=== PATIENT | male | born 1960 | race Caucasian/White ===

== ENCOUNTER 2016-12-08 16:45 | Inpatient (IN) | payer OTHER ==
[~2016-12-08] VITALS: Ht 180.3 cm; Wt 106.2 kg
--- NOTE | ~2016-12-08 | EKG ---
PATIENT: JULES MONZON UNIT #: [id number] Ventricular Rate: 125 BPM Atrial Rate: 33 BPM QRS Duration: 186 ms Q-T Interval: 400 ms QTC Calculation(Bezet): 577 ms Calculated R [place]: -28 degrees Calculated T [place]: 92 degrees Diagnosis Line: Supraventricular tachycardia Diagnosis Line: Left bundle branch block Diagnosis Line: Abnormal ECG Diagnosis Line: When compared with ECG of 06-JUL-2016 18:24, Diagnosis Line: Supraventricular tachycardia has replaced Sinus Diagnosis Line: rhythm Diagnosis Line: Confirmed by DOMINIC MCCRAY MD ([id number]) on 12/09/2016 Diagnosis Line: 7:55:58 PM INTERPRETING MD: SHAZIA LADD
--- NOTE | ~2016-12-08 | CR72 ---
[facility] A Service of [facility] & [facility] RADIOLOGY TEXT RESULTS PATIENT: JULES MONZON LOCATION: [place] [address] : [birth year] UNIT #: [id number] AGE: [address]: Dilcia Alvarez MD SEX: M ORDER DR: [id number] [facility] [address] [facility]. [place], [place] [address] [id number] I MR#: [id number] Acc #: [id number] NAME: JULES MONZON : 1960 SEX: M STUDY DATE/TIME: 12/12/2016 04:24 UNIT: [facility] ROOM: [facility] STUDY DESCRIPTION: CR Chest Single View Portable Attending Physician: Dilcia Alvarez M.D. Ordering Physician: Dilcia Alvarez M.D. Primary Care Physician: Luisito Ash M.D. MEDICAL IMAGING REPORT This report is preliminary unless electronic signature is present EXAM Portable chest, 12/12 at 04:24 INDICATION Respiratory failure, shortness of air. COPD exacerbation. FINDINGS AP portable chest is compared with 12/09/2016. Cardiomegaly stable. Right IJ line in the SVC. There is still some consolidation behind the heart at the left base and there is a trace amount of left pleural fluid. Granulomatous calcifications are present. No pneumothorax. Dictated by... Kyle St Jr., M.D. THIS IS AN ELECTRONICALLY VERIFIED REPORT Kyle St Jr., M.D. at 12/12/2016 9:24 PM JOHNATHAN/armando TD: 12/12/2016 16:04 JOB #: [id number] MEDICAL IMAGING REPORT Page 1 of 1 COPY
--- NOTE | ~2016-12-08 | CO ---
Unit #: [id number] #: [id number] Patient: JULES CHAVEZ SR [id number] [address] [place], [place] [address] [id number] Rick MR#: [id number] NAME: JULES CHAVEZ SR ROOM: [facility] Age: 55 Sex: M Admission Date: 12/08/2016 : 1960 Attending Physician: Dilcia Alvarez M.D. Primary Care Physician: Luisito Ash M.D. Consultation Date: 12/09/2016 CONSULTATION REPORT REASON FOR CONSULTATION Renal insufficiency. Thank you very much for asking me to see this patient in consultation. HISTORY OF PRESENT ILLNESS Mr. Jules Chavez is a 55-year-old male with history of renal insufficiency in the past, I saw the patient in 09/2015, where he had acute renal failure. His creatinine did not go all the way down to the normal on discharge. I believe it was 1.5 at that time. He does have a history of cardiomyopathy with decreased EF around 10% to 15% with atrial fibrillation. He presents here again with increased shortness of breath x3 days and cough. The patient subsequently was also has had episodes of hypotension here and has been started on Levophed drip. The patient also started on IV diuretics for potential congestive heart failure. The patient is alert. He denies any chest pain. No nausea or vomiting. He denies any urinary symptoms. PAST MEDICAL HISTORY History of diabetes mellitus; history of cardiomyopathy with decreased EF around 10% to 15%; history of atrial fib; history of COPD; history of gastroesophageal reflux disease; history of hypertension; history of TIAs; history of hyperlipidemia; history of acute renal failure; again history of duodenal ulcers in the past; history of anemia; history of pulmonary embolus in 09/2015; he is status post AICD placement; he has a history of cocaine abuse in the past, although he states he has not done any in a while; he also has a chronic history of smoking. MEDICATIONS His medicines currently include Levophed, he still on little hydralazine per Cardiology as well as Coreg, he is on Rocephin, Lasix 20 mg q.12, Solu-Medrol, ProAmatine, Lovenox, Zocor, Seroquel, Neurontin, Aldactone, and Protonix. SOCIAL HISTORY Positive smoker since age 4. Positive cocaine in the past, denies recently. No alcohol use. Retired, on disability. ALLERGIES Include codeine and Aleve. REVIEW OF SYSTEMS As mentioned in the HPI. Denies any fevers, chills, visual problems, sinus problems. No hemoptysis. No severe abdominal pain. No severe Unit #: [id number] #: [id number] Patient: JULES CHAVEZ SR diarrhea. No urinary symptoms. No skin rashes. He denies any nonsteroidal use. FAMILY HISTORY Noncontributory. PHYSICAL EXAMINATION GENERAL: He is alert. VITAL SIGNS: T-max 99.2, pulse 81 to 107, blood pressure 76 to 132 over 50s to 80s, last check was 98/72, 675 in and out recorded as 100 only. HEENT: He is normocephalic and atraumatic. Pupils are equal, round, and reactive to light. Extraocular muscles are intact. Hearing appears to be normal. Mouth is clear. No erythema. No exudate. NECK: Supple. No JVD. CARDIAC: He has an irregular rhythm without a rub. No S3 or S4. LUNGS: He has some bilateral rhonchi. ABDOMEN: Bowel sounds positive. Nontender. Soft. EXTREMITIES: He has no trace lower extremity swelling. NEURO: He is alert. : Deferred. Diamond catheter is in place. SKIN: No rashes. DIAGNOSTIC STUDIES LABORATORY RESULTS: Showed an ABG of pH 7.402, pCO2 of 35, PO2 of 114 on 3 L. Troponin 0.03. BNP 3461. Lactic acid was 3.3. TSH 2.84. In 06/2016, he had a creatinine ranging between 1.1 to 1.4. Hemoglobin is 15.1, platelets 99,000, white count 6900. Sodium is 131, potassium 5.4 up from 4.7, chloride is 101, bicarb is 17, BUN of 50, creatinine 2.4 up from 1.7, glucose 265. UA shows specific gravity of 1.02, 1+ protein, 0 to 2 rbc's, 0 to 2 wbc's. IMAGING STUDIES: Chest x-ray, cardiomegaly with some mild vascular congestion. ASSESSMENT AND PLAN 1. Acute on probable chronic kidney disease. Certainly acute renal failure could be related to some acute tubular necrosis from hypotension, possible being ruled out for sepsis as well as possible decrease perfusion from poor cardiac output versus other. I agree with blood pressure up and some diuresis as well. We will check a BMP later today and in the morning. We will check a portable renal ultrasound to rule out obstruction and we will follow. 2. Hyperkalemia. The patient's potassium increasing secondary to renal insufficiency, hyperglycemia, and metabolic acidosis. We will go ahead and discontinue his Aldactone. We will give him several doses of IV bicarb and check potassium later today. 3. Diabetes mellitus with increased glucose. 4. History of cardiomyopathy with decreased ejection fraction. 5. Chronic obstructive pulmonary disease. 6. Shortness of breath. Again, a combination of possible chronic obstructive pulmonary disease exacerbation versus congestive heart failure versus pneumonia versus other. CT scan of the chest without IV contrast has been ordered. 7. Acidosis. The patient with a decreased bicarb 17 and the patient appears to have a combination of metabolic acidosis as well as a respiratory alkalosis. Unit #: [id number] #: [id number] Patient: JULES CHAVEZ SR Dictated by..Sandra Guillermo/lennie TD: 12/10/2016 01:24 JOB #: [id number] CONSULTATION REPORT Page 1 of 1 X Jess Monterroso MD CONSULTATION REPORT
--- NOTE | ~2016-12-08 | OR ---
Unit #: [id number] #: [id number] Patient: JULES MONZON [id number] [address] [address] [id number] I MR#: [id number] NAME: JULES MONZON SR ROOM: [facility] Date of Procedure: 12/09/2016 Admission Date: 12/08/2016 Surgeon: Noemí Marshall M.D. : 1960 Attending Physician: Dilcia Alvarez M.D. Primary Care Physician: Luisito Ash M.D. PROCEDURE OPERATIVE NOTE PROCEDURE PERFORMED Right intrajugular venous catheter placement with ultrasound guidance. INDICATION FOR PROCEDURE Septic/cardiogenic shock. COMPLICATIONS None. DESCRIPTION OF PROCEDURE An informed consent was obtained from the patient after explaining the benefit and risk of this procedure. The patient was positioned in a proper way. Then with ultrasound guidance, a needle was inserted in the right IJ until blood flow was obtained. Then a guidewire was inserted and then the needle was removed. Then a catheter was inserted over the guidewire and the guidewire was removed. The catheter was sutured and flushed appropriately. Then Biopatch and a clean dressing were applied. The whole procedure was done in a sterile fashion using chlorhexidine and sterile body drape. Chest x-ray is pending at the time of dictation. Dictated by... Noemí Marshall M.D. EA/arlyn TD: 12/10/2016 08:58 JOB #: [id number] Unit #: [id number] #: [id number] Patient: JULES MONZON SR PROCEDURE OPERATIVE NOTE Page 1 of 1 X NOEMÍ MORAN MD X PROCEDURE OPERATIVE NOTE
--- NOTE | ~2016-12-08 | CT57 ---
[facility] A Service of [facility] & [facility] RADIOLOGY TEXT RESULTS PATIENT: JLUES MONZON SR LOCATION: [address] : [birth year] UNIT #: [id number] AGE: [address]: Dilcia Alvarez MD SEX: M ORDER DR: [id number] [facility] [address] [facility]. [place], [place] [address] [id number] I MR#: [id number] Acc #: [id number] NAME: JULES MONZON SR : 1960 SEX: M STUDY DATE/TIME: 12/09/2016 19:55 UNIT: [facility] ROOM: [facility] STUDY DESCRIPTION: CT Chest Wo Cont Attending Physician: Dilcia Alvarez M.D. Ordering Physician: Lexa Marshall M.D. Primary Care Physician: Luisito Ash M.D. MEDICAL IMAGING REPORT This report is preliminary unless electronic signature is present EXAM CT chest without contrast HISTORY Left posterior rib pain with coughing. Shortness of air for [address] exam was performed with one or more of the following radiation dose reduction techniques: automatic control, adjustment of mA and/or kV according to patient size, and iterative reconstruction. FINDINGS CT chest without contrast demonstrates focal patchy rounded infiltrate in the posterolateral left lower lobe extending to the pleural surface. This is new compared to CT 06/28/2016. This is nonspecific. Considerations include pneumonia. In this location, evolving pulmonary infarct is also a consideration. This measures close to 4 cm. Mild multifocal linear atelectasis in the medial and posterior left lower lobe, and in the posterior right lower lobe, into the right middle lobe. 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 Mild mediastinal adenopathy including pretracheal, right paratracheal, and subcarinal nodes, measuring up to 1.7 cm, similar to the prior CT. Mild multichamber cardiac enlargement. 1.5 cm gallstone. IMPRESSION 1. Focal rounded patchy infiltrate in the posterolateral left lower lobe extending to the pleural surface. Considerations include pneumonia or evolving pulmonary infarct. This is a new finding compared to chest CT 06/28/2016. Correlation with the patient's history and symptoms is recommended. No additional focal infiltrates. 2. Stable mild mediastinal adenopathy. 3. 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 4. 1.6 cm calcified gallstone. [facility]. [facility] A Service of [facility] & [facility] RADIOLOGY TEXT RESULTS PATIENT: JULES MONZON SR LOCATION: [place] [address] : [birth year] UNIT #: [id number] AGE: [address]: Dilcia Alvarez MD SEX: M ORDER DR: Dictated by... Conrado Bautista M.D. THIS IS AN ELECTRONICALLY VERIFIED REPORT Conrado Bautista M.D. at 12/10/2016 11:44 PM MARILUZ/otilia TD: 12/10/2016 04:12 JOB #: [id number] MEDICAL IMAGING REPORT Page 1 of 1 COPY
--- NOTE | ~2016-12-08 | CR72 ---
[facility] A Service of [facility] & [facility] RADIOLOGY TEXT RESULTS PATIENT: JULES MONZON SR LOCATION: [address] : [birth year] UNIT #: [id number] AGE: [address]: Dilcia Alvarez MD SEX: M ORDER DR: [id number] [facility] [address] [facility]. [place], [place] [address] [id number] I MR#: [id number] Acc #: [id number] NAME: JULES MONZON SR : 1960 SEX: M STUDY DATE/TIME: 12/08/2016 17:49 UNIT: [facility] ROOM: [facility] STUDY DESCRIPTION: CR Chest Single View Portable Attending Physician: Dilcia Alvarez M.D. Ordering Physician: Nona Doty M.D. Primary Care Physician: Luisito Ash M.D. MEDICAL IMAGING REPORT This report is preliminary unless electronic signature is present EXAM Portable chest 12/08/2016 HISTORY 55-year-old male with shortness of breath and cough for 3 days. COMPARISON Chest 06/27/2016 FINDINGS Frontal chest demonstrates cardiomegaly. There is mild central vascular prominence and bilateral interstitial opacities. Early congestive failure not excluded in the appropriate clinical setting. Small left pleural effusion not excluded. No pneumothorax. Left-sided AICD complex. IMPRESSION Cardiomegaly with central vascular congestion and mild bilateral interstitial opacities. Early congestive failure not excluded in the appropriate clinical setting. Trace left pleural effusion is also not excluded. Dictated by... Jm Meneses M.D. THIS IS AN ELECTRONICALLY VERIFIED REPORT Jm Meneses M.D. at 12/09/2016 3:57 PM LYNNE/otilia TD: 12/09/2016 04:14 JOB #: [id number] MEDICAL IMAGING REPORT Page 1 of 1 COPY
--- NOTE | ~2016-12-08 | CR72 ---
[facility] A Service of [facility] & [facility] RADIOLOGY TEXT RESULTS PATIENT: JULES MONZON SR LOCATION: [address]06[address] : [birth year] UNIT #: [id number] AGE: [address]: Dilcia Alvarez MD SEX: M ORDER DR: [id number] [place] [id number] [place], [place] [address] [id number] I MR#: [id number] Acc #: [id number] NAME: JULES MONZON SR : 1960 SEX: M STUDY DATE/TIME: 12/09/2016 9:53 UNIT: [facility] ROOM: [facility] STUDY DESCRIPTION: CR Chest Single View Portable Attending Physician: Dilcia Alvarez M.D. Ordering Physician: Lexa Marshall M.D. Primary Care Physician: Luisito Ash M.D. MEDICAL IMAGING REPORT This report is preliminary unless electronic signature is present EXAM Portable chest. HISTORY Central line placement. Patient with cough, line placement today. COMPARISON 12/08/2016 FINDINGS Portable view of the chest demonstrates interval placement of a right neck approach central line distal tip mid SVC. No change in cardiopulmonary status. Continued cardiomegaly and mild diffuse pulmonary vascular congestion. No dense consolidation or sizeable effusions. No pneumothorax. Dual-lead pacemaker noted. Dictated by... Courtney Davalos M.D. THIS IS AN ELECTRONICALLY VERIFIED REPORT Courtney Davalos M.D. at 12/09/2016 5:33 PM Paulina TD: 12/09/2016 17:11 JOB #: [id number] MEDICAL IMAGING REPORT Page 1 of 1 COPY
--- NOTE | ~2016-12-08 | US77 ---
[facility] A Service of [facility] & [facility] RADIOLOGY TEXT RESULTS PATIENT: JULES MONZON LOCATION: [place] [address] : [birth year] UNIT #: [id number] AGE: [address]: Dilcia Alvarez MD SEX: M ORDER DR: [id number] [facility] [address] [facility]. [place], [place] [address] [id number] I MR#: [id number] Acc #: [id number] NAME: JULES MONZON : 1960 SEX: M STUDY DATE/TIME: 12/09/2016 14:43 UNIT: [facility] ROOM: [facility] STUDY DESCRIPTION: US Kidney Bilateral Complete Attending Physician: Dilcia Alvarez M.D. Ordering Physician: Kayta Monterroso M.D. Primary Care Physician: Luisito Ash M.D. MEDICAL IMAGING REPORT This report is preliminary unless electronic signature is present EXAM Bilateral renal sonogram HISTORY Acute renal failure, onset within the last 24 hours. COMPARISON Renal sonogram 09/25/2015 FINDINGS Real-time examination demonstrates the kidneys to be of normal size shape and echogenicity. The right kidney measures 11.5 cm in length. The left kidney measures 9.5 cm in length. There is a small cyst off the medial margin of the left kidney measuring 1.3 cm. Central echo complex appears normal. No hydronephrosis. Bladder is only minimally distended but unremarkable. Perinephric soft tissues unremarkable. IMPRESSION 1. No mass or hydronephrosis. 2. Small left renal cortical cyst. Dictated by... Courtney Davalos M.D. THIS IS AN ELECTRONICALLY VERIFIED REPORT Courtney Davalos M.D. at 12/11/2016 5:12 PM MARTY/otilia TD: 12/09/2016 23:51 JOB #: [id number] MEDICAL IMAGING REPORT Page 1 of 1 COPY
--- NOTE | ~2016-12-08 | CO ---
Unit #: [id number] #: [id number] Patient: JULES MONZON SR [id number] [address] [address] [id number] I MR#: [id number] NAME: JULES MONZON SR ROOM: [facility] Age: 55 Sex: M Admission Date: 12/08/2016 : 1960 Attending Physician: Dilcia Alvarez M.D. Primary Care Physician: Luisito Ash M.D. Consultation Date: 12/11/2016 CONSULTATION REPORT TYPE OF CONSULTATION Endocrine REASON FOR CONSULTATION Uncontrolled diabetes mellitus. HISTORY OF PRESENT ILLNESS A 55-year-old gentleman, who has complicated past medical history of cardiomyopathy, history of possible AICD, COPD, history of pulmonary embolism, anticoagulation therapy, hypertension, depression, dyslipidemia, bipolar disorder, type 2 diabetes mellitus, who has been admitted with increasing shortness of air, dyspnea, hypotension, admitted with sepsis. He also was found to be in acute renal failure. He has been started on IV Solu-Medrol. Blood sugar has been above 400 mg/dL. I have been asked to see the patient for further management. The patient is currently in ICU. PAST MEDICAL HISTORY Nonischemic cardiomyopathy, history of possible AICD, hypertension, hyperlipidemia, type 2 diabetes mellitus, COPD, history of PE, mediastinal mass, and CKD. PAST SURGICAL HISTORY AICD, tonsillectomy, vasectomy, appendectomy, and cardiac cath. MEDICATIONS Current and home medication list is reviewed. The patient is currently on Solu-Medrol 40 mg daily. He is on Rocephin, Zocor and Seroquel. ALLERGIES he had allergies To codeine, Tylenol, and naproxen. SOCIAL HISTORY Active smoker. FAMILY HISTORY Noncontributory. REVIEW OF SYSTEM A 12-point review of systems is unremarkable at this time except shortness of air. PHYSICAL EXAMINATION GENERAL: He looks comfortable, in no acute distress. Unit #: [id number] #: [id number] Patient: JULES MONZON SR VITAL SIGNS: He is on pressors at this point, with blood pressure 133/63, on dobutamine; respiration 20; temperature 97.5, and pulse 80. HEENT: EOMI. Pupils equally reactive to light. NECK: Supple. No thyromegaly noted. CHEST: good air entry. CVS: regular rhythm. ABDOMEN: Benign, nontender, and nondistended. EXTREMITIES: No edema. Ulcers are noted. NEUROLOGIC: Nonfocal. SKIN: No rashes. LABORATORY DATA Glucose 476, creatinine 2.2, sodium 134, potassium is 3, chloride 94, CO2 is 29, calcium 7.4, magnesium 1.5, hemoglobin A1c 7.8, lactic acid is 3.3. ASSESSMENT 1. Type 2 diabetes mellitus, uncontrolled and complicated with the sepsis in the IV steroids. 2. Acute kidney injury. 3. Automated implantable cardioverter defibrillator. PLAN Start the patient on insulin drip. Accu-Cheks every hourly. Keep patient n.p.o. We will start NPH insulin in the morning before each Solu-Medrol dose. Monitor electrolytes. Replace mag and phos as per protocol. We will continue to follow the patient for further management as an outpatient. Dictated by... Sandra García/lennie TD: 12/12/2016 06:15 JOB #: [id number] CONSULTATION REPORT Page 1 of 1 X Rochelle Bustos MD X CONSULTATION REPORT
--- NOTE | ~2016-12-08 | DS ---
Unit #: [id number] #: [id number] Patient: JULES CHAVEZ SR [id number] [address] [address] [id number] I MR#: [id number] NAME: JULES CHAVEZ SR ROOM: 309 Age: 55 Sex: M Admission Date: 12/08/2016 : 1960 Discharge Date: 12/14/2016 Attending Physician: Dilcia Alvarez M.D. Primary Care Physician: Luisito Ash M.D. DISCHARGE SUMMARY FINAL DIAGNOSES 1. Acute hypoxic respiratory failure. 2. Left lower lobe pneumonia. 3. Congestive heart failure. 4. Acute on chronic kidney disease. 5. Atrial fibrillation. 6. Ejection fraction of 40%. 7. Normal coronaries in 2009. 8. Automatic implantable cardioverter-defibrillator in place. 9. Chronic obstructive pulmonary disease. 10. History of pulmonary embolism in September 2015. 11. Diabetes mellitus. 12. Drug abuse. 13. Nicotine abuse. DISCHARGE MEDICATIONS 1. Symbicort 160/4.5 mcg 2 inhalations b.i.d. 2. Amiodarone 200 mg daily. 3. Tylenol 650 q.4 p.r.n. 4. Xarelto 15 mg daily. 5. Neurontin 200 mg t.i.d. p.r.n. 6. Desyrel 50 mg q.h.s. 7. Seroquel 300 mg at bedtime. 8. Bisacodyl 5 mg daily p.r.n. 9. MiraLAX 17 grams p.o. b.i.d. p.r.n. 10. Furosemide 40 mg b.i.d. 11. Zocor 10 mg at bedtime. 12. Midodrine 10 mg t.i.d. 13. Baclofen 10 mg t.i.d. p.r.n. 14. Glucotrol 5 mg daily. 15. Nitroglycerin on a p.r.n. basis. 16. Vitamin D3 - 1,000 units daily. 17. DuoNeb q.i.d. 18. Omnicef 300 mg p.o. b.i.d. until 12/22. CONSULTATIONS DURING HOSPITALIZATION 1. Dr. Marshall and Dr. Reeves from pulmonary service. 2. Dr. Bustos from endocrinology service. 3. Dr. Skelton from cardiology service. 4. Dr. Monterroso from renal service. DIAGNOSTIC STUDIES LAB WORKUP ON DISCHARGE: Glucose 232, magnesium 2.1. CMP - Sodium 136, potassium 4.2, chloride 94, BUN 53, creatinine 1.1, AST 101, ALT 558, Unit #: [id number] #: [id number] Patient: JULES CHAVEZ SR albumin 3.2. CBC shows WBC 10.9, hemoglobin 13.9, hematocrit 43.1 and platelet count of 92. HOSPITAL COURSE Mr. Jules Chavez is a 55-year-old male who was admitted to the hospital by my colleague, Dr. Santos, on 12/08/2016 with atrial fibrillation, ischemic cardiomyopathy, left bundle branch block, elevated troponin, acute exacerbation of COPD, pneumonia and acute kidney injury. The patient does have a history of chronic kidney disease. The patient was admitted to telemetry unit. Cardiology was consulted. The patient was started on Lovenox. Coreg and Lasix were continued. Levophed for hemodynamic support was started, and midodrine was started. The patient did have hypotension on admission. Acute exacerbation of COPD. Was treated with IV steroid and bronchodilator. Dr. Marshall was consulted. The patient did have acute hypoxic respiratory failure, which has improved. The patient's oxygen is stable at this time. The patient needs to continue bronchodilators at home. The patient was treated with IV antibiotics for pneumonia. Acute on chronic kidney disease. The patient was seen by Dr. Monterroso. The patient's renal functions are stable. History of PE. The patient is very noncompliant with home Xarelto. The patient has been advised to continue the Xarelto at home. Diabetes. Dr. Bustos was consulted. The patient's medications are adjusted. EXAMINATION ON DISCHARGE VITAL SIGNS: Blood pressure 112/79, temperature 97.8, pulse 103, respiratory rate 18. PULMONARY: Some rhonchi present. CVS: S1, S2 positive. Regular rhythm. ABDOMEN: Soft. EXTREMITIES: Edema is present. DISCHARGE INSTRUCTIONS 1. The patient is being discharged home in stable condition. 2. Follow up with primary care provider in one week. 3. BMP to be repeated in 1 week. 4. Follow up with Dr. Skelton on 01/27/17 at 1:15 p.m. 5. No NSAIDs over the counter. 6. No JULITO inhibitors. Dictated by... Sandra Dillon TD: 12/16/2016 10:49 JOB #: [id number] Unit #: [id number] #: [id number] Patient: JULES CHAVEZ SR DISCHARGE SUMMARY Page 1 of 1 X Dilcia Alvarez MD X DISCHARGE SUMMARY
--- NOTE | ~2016-12-08 | CO ---
Unit #: [id number] #: [id number] Patient: JULES CHAVEZ [id number] [address] [place], [place] [address] [id number] MR#: [id number] NAME: JULES CHAVEZ SR ROOM: [facility] Age: 55 Sex: M Admission Date: 12/08/2016 : 1960 Attending Physician: Dilcia Alvarez M.D. Primary Care Physician: Luisito Ash M.D. Consultation Date: 12/09/2016 CONSULTATION REPORT REASON FOR CONSULTATION 1. Atrial flutter with left bundle-branch block with rapid ventricular response. 2. Acute on chronic systolic congestive heart failure. HISTORY OF PRESENT ILLNESS This is a 55-year-old white male, who is well known to Dr. Skelton, who has nonischemic cardiomyopathy, and on his last echo, his EF was 10% to 15%. He has a defibrillator. He is a diabetic, history of paroxysmal atrial fibrillation, history of PE last year, TIA in the past, COPD with continued nicotine abuse, hyperlipidemia, chronic kidney disease, who came to the emergency room with worsening shortness of breath and heart racing. He said these symptoms were worsening over the last 4 days. He was having some proximal nocturnal dyspnea and orthopnea. He did notice his lower extremities were a little swollen, but he said he has been adhering to his fluid restriction. The patient said he would lie down and could feel his heart racing and then, he would a kind of try to slow his breathing or just relax, then he would slow down occasionally. He said that has been off and on over the past 3 to 4 days. He just said he broke his ribs in the past and he was having some pain on his right lower ribcage area. He thought maybe he hurt his ribs again. He denies any chest pain; pain in his neck, bilateral jaws, shoulders, arms, or elbow. He denies any dizziness, presyncope or syncope. He would get a little diaphoretic. He denied any fever or chills. He says his cough is nonproductive. In the emergency room, the patient's blood pressure was 105/78, his heart rate was 81, respirations 16, temperature was 97.6 and later on his EKG showed atrial flutter, 2:1 conduction with a left bundle-branch block, ventricular rate was 125 beats per minute. The patient's defibrillator did not fire during any of these episodes. The patient was given 150 mg of IV amiodarone bolus and started on a drip per protocol. Also, his chest x-ray showed vascular congestion and bilateral interstitial opacities. His BNP was over 3000. His lactic acid was 2.4 and later 4.4. WBCs are 10.9. The patient was started on IV diuretics for acute on chronic systolic heart failure and treatment for acute exacerbation of bronchitis on COPD. Cardiology consult to assist with evaluation and management. According to the patient, he last seen Dr. Skelton in 10/2016 and he was supposed to fill a prescription for Xarelto and amiodarone and he has not yet received those prescriptions due to the pharmacy saying there was some type of problem. PAST MEDICAL HISTORY Unit #: [id number] #: [id number] Patient: JULES CHAVEZ SR 1. Nonischemic cardiomyopathy. 2. LVEF of 10% to 15% on echo in 09/2015 with [id number] mitral regurgitation, mild tricuspid regurgitation. 3. In 06/2015, cardiac cath shows normal coronaries. 4. Automatic internal cardioverter-defibrillator, [employer], it is dual chamber. 5. Chronic systolic congestive heart failure. 6. Diabetes mellitus, type 2. 7. Hypertension. 8. Hyperlipidemia. 9. Paroxysmal atrial fibrillation. 10. History of TIA in the past. 11. COPD. 12. Chronic kidney disease. 13. History of PE, 09/2015. 14. 09/2015, EGD showed a duodenal ulcer. Colonoscopy; polyps and diverticulosis. 15. Nicotine abuse. PAST SURGICAL HISTORY 1. AICD implantation in 12/2015. 2. Tonsillectomy. 3. Vasectomy. 4. Repair of left index finger. 5. Appendectomy. 6. Right shoulder surgery. 7. EGD and colonoscopy, 09/2015. HOME MEDICATIONS Aldactone 12.5 mg every 48 hours, aspirin 81 mg p.o. daily, baclofen 10 mg p.o. t.i.d. p.r.n., carvedilol 3.125 mg p.o. b.i.d., Dulcolax 5 mg p.o. daily, DuoNeb every 4 hours p.r.n., gabapentin 200 mg p.o. t.i.d. p.r.n., Glipizide 10 mg p.o. b.i.d., lisinopril 2.5 mg p.o. b.i.d., Nitrostat 0.4 mg sublingual p.r.n., pantoprazole 40 mg p.o. b.i.d., Seroquel XR 300 mg p.o. q.h.s., Desyrel 50 mg p.o. at bedtime, Tylenol 650 mg every 4 hours p.r.n., Zocor 10 mg p.o. h.s., Lasix 20 mg p.o. daily, vitamin D3 with iron one tablet daily, prednisone 40 mg p.o. daily, Symbicort 2 puffs inhalation b.i.d. It is noted the patient had new prescriptions when he saw Dr. Skelton in the office on 10/28/2016 for amiodarone 200 mg 1 tablet daily and Xarelto 20 mg 1 tablet daily, and these are not listed on the patient's home medications. ALLERGIES Naproxen from Aleve, salicylates, pyrazoles, and codeine. SOCIAL HISTORY The patient lives with his mother. He smokes anywhere from 5 to 7 cigarettes a day. He has been smoking most of his adult life. He quit drinking over 10 years ago. He smokes occasional marijuana. FAMILY HISTORY Both his parents has diabetes mellitus. REVIEW OF SYSTEMS See details in HPI. PHYSICAL EXAMINATION Unit #: [id number] #: [id number] Patient: JULES CHAVEZ GENERAL: Mr. Chavez is a 55-year-old white male. He is a little dyspneic with conversation. VITAL SIGNS: Blood pressure currently is 96/62, heart rate is 88, respirations 20, temperature 97.8, O2 saturations 98% on 3 L. NECK: Trachea midline. No thyromegaly or lymphadenopathy. Normal carotid upstrokes. Mild jugular venous distention. HEART: S1, S2. Regular rate and rhythm. Systolic murmur, left sternal border. LUNGS: Very diminished. Some rales in bases with some scattered rhonchi and faint wheeze in upper airways. ABDOMEN: Distended. Positive hepatosplenomegaly. EXTREMITIES: Pedal pulses are palpable. 1+ pedal edema. DIAGNOSTIC DATA LABORATORY RESULTS: ABGs; pH is 7.402, pCO2 of 75.2, pO2 of 114.0, O2 sat is 97 that is on 3 L. Glucose is 256. BUN 40, creatinine 1.7, eGFR is 44.1. Sodium 134, potassium 4.7, chloride 104, CO2 of 21, calcium is 9.0, magnesium is 1.9, total protein 7.3, bilirubin total is 1.5, AST 22, ALT is 43, alkaline phosphatase is 72, BNP is 3461. Alcohol level is less than 5. INR is 1.2. WBC is 6.9, hemoglobin 15.1, hematocrit 47.4, platelets are 99. Initial cardiac enzymes; CK-MB is 1.4, troponin is 0.21, CK-MB is 2.0, troponin 0.27, later troponin is 0.38, 0.33. Blood cultures are pending. IMAGING STUDIES: Chest x-ray shows cardiomegaly with central vascular congestion and mild bilateral interstitial opacities. CARDIOVASCULAR STUDIES: EKG shows atrial flutter with 2:1 conduction and left bundle-branch block. IMPRESSION 1. Atrial flutter with rapid ventricular response with a left bundle-branch block, history of paroxysmal atrial fibrillation. 2. Nonischemic cardiomyopathy, left ventricular ejection fraction of 10% to 15% with [id number] mitral regurgitation, mild tricuspid regurgitation. 3. Normal coronaries per cardiac cath 06/2015. 4. Hypotension with a history of hypertension. 5. Mildly elevated troponin likely secondary to his acute on chronic systolic heart failure. 6. Acute on chronic kidney disease. 7. Diabetes mellitus, type 2. 8. History of transient ischemic attack in the past. 9. Chronic obstructive pulmonary disease, continues nicotine abuse. PLAN 1. Cardiology consult to assist with evaluation and management. 2. Gently diurese with IV Lasix. Strict intake and output and daily weights. Continue to monitor labs, especially BUN, creatinine, and electrolytes, and supplement when needed. 3. The patient currently appears to be 2:1 atrial flutter. His ventricular rate is now improved to 94 beats per minute. He does have a left bundle-branch block. As far as anticoagulation, the patient will be on Lovenox therapeutic dosing. 4. We will have the career guidance counselor to look into the coverage of Xarelto. According to the patient, he took the prescription of Xarelto when he last seen Dr. Skelton this past October and there were some problems at the pharmacy. He has not been taking Xarelto and it appears that he has not Unit #: [id number] #: [id number] Patient: JULES CHAVEZ SR been taking the amiodarone either. We will have the nurse check the pharmacy to see if he has been filling that prescription for amiodarone. Continue the patient on amiodarone drip at this time. He was started back on carvedilol 3.125 mg p.o. b.i.d. along with amiodarone 200 mg p.o. b.i.d. and after the present bag, we will the IV amiodarone. 5. We will add a low-dose nitrate and also low-dose hydralazine for afterload effect. 6. Treatment for his acute bronchitis. 7. The patient's troponin is mildly elevated, most likely secondary to his acute on chronic systolic heart failure and his atrial flutter with rapid ventricular response. He does have normal coronaries that was found last year on his heart catheterization. 8. On exam, there are no signs or symptoms of unstable angina. 9. We will follow this patient closely. Encourage the patient to completely quit smoking. Smoking cessation information was provided to the patient. 10. Further recommendations pending per Dr. Skelton. Thank you very much for allowing us to assist in care. Dictated by... Ghazala Cornell A.P.R.N. for Melvin Skelton M.D. YI/lennie TD: 12/10/2016 00:33 JOB #: [id number] CONSULTATION REPORT Page 1 of 1 X Ghazala Cornell APRN X CONSULTATION REPORT
--- NOTE | ~2016-12-08 | HP ---
Unit #: [id number] #: [id number] Patient: JULES CHAVEZ SR [id number] [address] [address] [id number] MR#: [id number] NAME: JULES CHAVEZ, SR ROOM: [facility] Age: 55 Sex: M Admission Date: 12/08/2016 : 1960 Attending Physician: Dilcia Alvarez M.D. Primary Care Physician: Luisito Ash M.D. HISTORY AND PHYSICAL ADMISSION DIAGNOSES 1. Atrial fibrillation. 2. Ischemic cardiomyopathy. 3. Left bundle branch block. 4. Elevated troponins. 5. Acute exacerbation of chronic obstructive pulmonary disease. 6. Questionable pneumonia. 7. Acute kidney injury, on chronic kidney disease. 8. History of PE with noncompliance with home chronic anticoagulation. 9. History of bipolar disorder. 10. Uncontrolled diabetes. 11. Dyslipidemia. 12. Depression. 13. History of hypertension, now hypotensive. HISTORY OF PRESENT ILLNESS Mr. Chavez is a 55-year-old gentleman with the extensive past medical history including cardiomyopathy, status post AICD, COPD, pulmonary embolus, for which he was noncompliant with his home medicine, Xarelto, history of hypertension, depression, dyslipidemia, bipolar disorder. He comes in with complaints of shortness of air and dyspnea. Denies any fever or chills, denies any palpitations, denies any chest pain, denies any headache, dizziness, syncope or presyncope, denies any nausea, vomiting, diarrhea or abdominal pain. He is a very poor historian but he denied anything else other than shortness of air, dyspnea. He was found hypotensive with acute exacerbation of COPD and cardiomyopathy with A-flutter, was admitted to ICU. So, twelve point review of systems on this patient is basically negative except as above. PAST MEDICAL HISTORY Significant for, again: 1. Nonischemic cardiomyopathy. 2. Hypertension. 3. Dyslipidemia. 4. Diabetes. 5. COPD. 6. History of PE. 7. History of mediastinal mass. 8. History of CKD. PAST SURGICAL HISTORY Significant for: 1. AICD placement. 2. Tonsillectomy. Unit #: [id number] #: [id number] Patient: JULES CHAVEZ SR 3. Vasectomy. 4. Repair of left index finger. 5. Appendectomy. 6. Right shoulder surgery. 7. EGD. 8. Colonoscopy. 9. Cardiac cath. MEDICATIONS Current medications on this gentleman include: 1. Levophed. 2. Lovenox, treatment dose. 3. Levemir, 8 units subcu b.i.d. 4. Nitro patch. 5. Hydralazine. 6. Amiodarone. 7. Coreg. 8. Rocephin. 9. Lasix. 10. Midodrine. 11. Solu-Medrol. 12. Bisacodyl. 13. Dulera inhaler. 14. Zocor. 15. Desyrel. 16. Seroquel. 17. Sliding scale insulin. 18. Nitrostat p.r.n. 19. Neurontin. 20. Combivent. 21. Baclofen. 22. Percocet. 23. Vitamin D. 24. IV Protonix. ALLERGIES Allergic to codeine, Tylenol, Naprosyn. SOCIAL HISTORY He is an active smoker. Denies any alcohol or illicit drugs. FAMILY HISTORY Unremarkable. PHYSICAL EXAMINATION GENERAL: The patient is a 55-year-old gentleman in no acute distress. VITAL SIGNS: Blood pressure 109/68, heart rate 95, respirations 20, temperature 98.3. HEENT: Head is atraumatic. Pupils equal, round, reacting to light and accommodation. Extraocular muscles intact. Oropharynx clear. NECK: Supple. No masses, no JVD, no bruits. CHEST: Diminished bilaterally. CARDIOVASCULAR: S1, S2. No murmurs. ABDOMEN: Soft, nontender, nondistended. EXTREMITIES: Lower extremities without any cyanosis, clubbing or edema. NEUROLOGICAL: The patient is grossly intact. No focal deficits. DIAGNOSTIC STUDIES Unit #: [id number] #: [id number] Patient: JULES CHAVEZ LABORATORY: PT, INR, PTT 12.9, 1.2 and 25.2. BUN and creatinine 15 and 2.5, blood glucose 266, sodium 132, bicarb 19. Troponin 0.27, white count 6.9, H and H 15 and 47, platelets 99. ASSESSMENT AND PLAN 1. Atrial flutter with nonischemic cardiomyopathy, left bundle branch block and elevated troponin: Had cardiac cath in the past with normal coronaries, status post evaluation per cardiology. Continue treatment dose of Lovenox. Continue Coreg and Lasix and Levophed for hemodynamic support and midodrine. 2. Acute exacerbation of COPD: Continue bronchodilators, IV steroids. 3. Questionable pneumonia: Follow up on the noncontrast CT. Continue antibiotics per pulmonary. 4. Acute kidney injury with chronic kidney disease, status post evaluation per Nephrology: Monitor renal function closely. 5. History of PE with noncompliance with the home Xarelto, currently on Lovenox. 6. History of bipolar disorder. 7. Diabetes: Will increase Levemir to 12 units b.i.d. 8. Dyslipidemia: Continue current. 9. Depression, continue home medications. 10. Continue current GI and DVT prophylaxis. Dictated by Tanmay Santos M.D. OC/df TD: 12/10/2016 10:32 JOB #: [id number] HISTORY AND PHYSICAL Page 1 of 1 X Tanmay Santos MD X HISTORY AND PHYSICAL
--- NOTE | ~2016-12-08 | CO ---
Unit #: [id number] #: [id number] Patient: JULES MONZON SR [id number] [address] [address] [id number] I MR#: [id number] NAME: JULES MONZON SR ROOM: [facility] Age: 55 Sex: M Admission Date: 12/08/2016 : 1960 Attending Physician: Dilcia Alvarez M.D. Primary Care Physician: Luisito Ash M.D. Consultation Date: 12/09/2016 CONSULTATION REPORT REASON FOR CONSULT ICU management. CHIEF COMPLAINT Shortness of breath. HISTORY OF PRESENT ILLNESS This is a 55-year-old male with past medical history significant for systolic congestive heart failure, hypertension, hyperlipidemia and COPD who presented to the emergency room with progressive shortness of breath for the last 2-3 days associated with cough productive of clear sputum. The patient denied any fever, chills or night sweats. No nausea, vomiting or diarrhea. The patient lives with his mom, and he was feeling very fatigued and weak for the last few days. The patient stated that he is compliant with his medication; however, he noted that his lower extremity was more swollen in spite of taking his water pills. PAST MEDICAL HISTORY 1. Systolic congestive heart failure with ejection fraction of 10% to 15%. 2. Nonischemic cardiomyopathy. 3. History of pulmonary embolism. 4. Anemia. 5. Tobacco abuse. 6. Diabetes mellitus. 7. Pacemaker. 8. Hypertension. 9. Hyperlipidemia. 10. COPD. HOME MEDICATIONS 1. Protonix. 2. Seroquel. 3. Tylenol. 4. Zocor. 5. Lasix. 6. Xarelto. 7. Vitamin D. 8. Aldactone. 9. Coreg. 10. DuoNeb. Unit #: [id number] #: [id number] Patient: JULES MONZON SR 11. Glipizide. 12. Gabapentin. 13. Zestril. SOCIAL HISTORY The patient has a history of smoking for a long time, almost 50 pack-years. No history of alcohol or drug abuse. He lives with his mom. FAMILY HISTORY Diabetes. ALLERGIES 1. Naproxen. 2. Salicylates. 3. Pyrazoles. 4. Codeine. REVIEW OF SYSTEMS Twelve-point review of systems was obtained and was negative except for what was mentioned in the HPI. PHYSICAL EXAMINATION GENERAL: The patient is ill appearing with mild respiratory distress. VITAL SIGNS: Blood pressure is 94/62, respiratory rate 16, O2 saturation 98% on 2 liters nasal cannula. HEENT: Atraumatic, normocephalic. PERRLA, EOMI. NECK: Positive JVD. HEART: S1, S2. No murmurs, gallops or rubs. ABDOMEN: Soft, nontender. Bowel sounds positive. No hepatosplenomegaly. CHEST: Bilateral rhonchi at the bases. SKIN: No rashes. HOTEL ENGINEER: Awake, alert, oriented x3. No focal motor/sensory deficits. LABS AND OTHER TESTS LABS: Creatinine 2.5, potassium 4.6, bicarb 19. BNP 3,461. White blood count 10.9. IMAGING: Chest x-ray is consistent with cardiomegaly and pulmonary edema. ASSESSMENT 1. Shock, likely cardiogenic; however, septic component needs to be ruled out. 2. Acute on chronic systolic congestive heart failure exacerbation. 3. Acute on chronic kidney disease. 4. Hyperkalemia. 5. Rule out pneumonia. 6. Hyperglycemia/diabetes. 7. Malnutrition. 8. Thrombocytopenia. 9. Questionable history of PE. 10. A fib. PLAN 1. Patient is ill appearing and critical with possible decompensation. 2. At this point the etiology of his shock is likely cardiogenic from congestive heart failure exacerbation; however, septic component cannot be ruled out. The patient is a poor historian; however, pneumonia is possibility. The best way, at this point, is to obtain a Unit #: [id number] #: [id number] Patient: JULES MONZON SR CT chest to rule out retrocardiac pneumonia, since his chest x-ray is not revealing for overt pneumonia. 3. Will continue the patient on broad-spectrum antibiotics pending culture. 4. Will continue the patient on IV Bumex; however, his lactic acid is elevated, which could be all cardiogenic related, but again, a septic component needs to be ruled out. 5. Blood sugar control. 6. Pressors, midodrine. 7. Xarelto. 8. Prognosis appears to be poor. We need to discuss code status with the patient and his mother. NOTE: Critical care time spent on this patient was 45 minutes. Dictated by... Sandra Santos TD: 12/10/2016 09:10 JOB #: [id number] CONSULTATION REPORT Page 1 of 1 X NOEMÍ MORAN MD X CONSULTATION REPORT
--- NOTE | ~2016-12-08 | EKG ---
PATIENT: JULES MONZON UNIT #: [id number] Ventricular Rate: 94 BPM Atrial Rate: 94 BPM P-R Interval: 208 ms QRS Duration: 152 ms Q-T Interval: 408 ms QTC Calculation(Bezet): 510 ms P [place]: 79 degrees Calculated R [place]: -73 degrees Calculated T [place]: 81 degrees Diagnosis Line: Normal sinus rhythm Diagnosis Line: Possible Left atrial enlargement Diagnosis Line: Left bundle branch block Diagnosis Line: Abnormal ECG Diagnosis Line: No previous ECGs available Diagnosis Line: Confirmed by DOMINIC MCCRAY MD ([id number]) on 12/09/2016 Diagnosis Line: 7:57:29 PM INTERPRETING MD: SHAZIA LADD
[~2016-12-08 16:45] MED LIST: ALBUTEROL17 GM INH; ALDACTONE PO; AMITRYPTYLINE PO; ANEXSIA 7.5/3251 TA1 PO; ASPIRIN81 M2 PO; BACLOFEN10 MG PO; BACLOFEN5 GM; COREG6.25 MG PO; CYMBALTA PO; DESYREL50 MG PO; DULCOLAX5 MG PO; DUONEB; GABAPENTIN400 M2 PO; GLIPIZIDE10 MG PO; LASIX20 MG PO; MELOXICAM15 MG PO; MUSCLE RELAXER; NEURONTIN PO; NEURONTIN300 MG; NITROSTAT0.4 MG SL; NORCO 7.5-3251 EACH PO; PANTOPRAZOLE SO40 MG PO; PREDNISONE10 MG PO; PROTONIX20 MG; REMERON PO; SEROQUEL PO; SEROQUEL XR300 M1 PO; SEROQUEL300 MG; SEROQUEL50 MG PO; SYMBICORT INH; TRAZODONE HCL100 MG; TYLENOL325 M1 PO; VICODIN 5/500 T1 TAB PO; VICODIN PO; VITAMIN D3 COM1 EACH PO; VITAMIN D31000 UNIT PO; XARELTO20 MG PO; ZESTRIL2.5 M1 PO; ZITHROMAX PO; ZOCOR10 MG PO
[2016-12-08 17:34] LABS: ARTERIAL BLOOD GAS ALLEN TEST NORMAL; ARTERIAL BLOOD GAS CARBOXY HB 1.5 %sat (0.0-9.0); ARTERIAL BLOOD GAS HCO3 21.9 mmol/L; ARTERIAL BLOOD GAS MET HB 0.4 %sat (0.0-2.0); ARTERIAL BLOOD GAS PCO2 35.2 mmHg (35.0-45.0); ARTERIAL BLOOD GAS pH 7.402 (7.350-7.450); ARTERIAL DRAW? YES
[2016-12-08 17:35] LABS: ARTERIAL BLOOD GAS ART SITE LEFT RADIAL; ARTERIAL BLOOD GAS DELIVERY NASAL CANNULA
[2016-12-08 17:43] LABS: POC - CKMB 1.4 ng/mL (0.0-7.9); POC - TROPONIN 0.21 ng/mL (<=0.05)
[2016-12-08 17:50] LABS: INR 1.2; PARTIAL THROMBOPLASTIN TIME 25.2 SECONDS (23.5-31.3); PROTHROMBIN TIME (PATIENT) 12.9 SECONDS (10.0-11.7)
[2016-12-08 17:59] LABS: BASOPHIL# 0.1 X10e3 (0-0.3); DIFF IND NO; EOSINOPHIL# 0.2 X10e3 (0-0.7); EOSINOPHIL% 1.6 % (0.0-7.0); HEMOGLOBIN 15.2 gm/dL (13.0-16.0); LYMPHOCYTE# 1.5 X10e3 (1.0-3.5); LYMPHOCYTE% 13.3 % (17.0-45.0); MEAN CELL VOLUME 85.4 FL (83-96); MEAN CORPUSCULAR HGB CONC 31.6 g/dL (30-36); MEAN PLATELET VOLUME 12.1 FL (6.5-11.5); MONOCYTE% 9.5 % (3.0-12.0); NEUTROPHIL# 8.1 X10e3 (1.5-7.1); NEUTROPHIL% 74.6 % (40-75); RED BLOOD COUNT 5.62 X10e (3.90-5.60); RED CELL DISTRIBUTION WIDTH 14.7 % (11.0-15.5); WHITE BLOOD COUNT 10.9 X10e3 (4.0-10.5)
[2016-12-08 18:01] LABS: PLATELET COUNT 116 X10e3 (140-420)
[2016-12-08 18:07] LABS: ALBUMIN SERUM 3.7 g/dL (3.5-5.0); BILIRUBIN, DIRECT 0.3 mg/dL (0.0-0.2); BILIRUBIN,INDIRECT 1.2 mg/dL (0.0-0.9); BILIRUBIN,TOTAL 1.5 mg/dL (0.2-2.0); BUN/CREATININE RATIO 23.52; CREATININE SERUM 1.7 mg/dL (0.6-1.4); GLOM FILT RATE Estimated 44.1 mL/min (>60); MAGNESIUM 1.9 mg/dL (1.6-3.0); POTASSIUM 4.7 mmol/L (3.5-5.1); PROTEIN TOTAL SERUM 7.3 g/dL (6.0-8.3)
[2016-12-08 21:34] LABS: POC - TROPONIN 0.27 ng/mL (<=0.05)
[2016-12-09 02:06] LABS: CK TOTAL 28 IU/L (36-174)
[2016-12-09 06:17] LABS: CK TOTAL 26 IU/L (36-174)
[2016-12-09 06:20] LABS: URINE SOURCE CLEAN CATCH
[2016-12-09 06:27] LABS: URINE APPEARANCE HAZY; URINE BLOOD NEG (NEG); URINE COLOR YELLOW; URINE GLUCOSE NORM (NORM); URINE KETONE NEG (NEG); URINE LEUKOCYTE ESTERASE NEG (NEG); URINE NITRATE NEG (NEG); URINE PROTEIN 1+ (NEG); URINE UROBILINOGEN NORM (NORM)
[2016-12-09 06:41] LABS: URINE BILIRUBIN NEG (NEG)
[2016-12-09 06:42] LABS: CULTURE INDICATED? NO; URBCS1 AUWI 0-2 /[HPF] (0-2); URINE BACTERIA AUWI NEG (NEGATIVE); URINE SQUAMOUS EPITHELIAL CELL FEW /[HPF]; UWBCS1 AUWI 0-2 (0-5)
[2016-12-09 07:07] LABS: BASOPHIL% 0.3 % (0-2.5); EOSINOPHIL% 0.1 % (0.0-7.0); HEMATOCRIT 47.4 % (38.0-50.0); HEMOGLOBIN 15.1 gm/dL (13.0-16.0); LYMPHOCYTE% 13.9 % (17.0-45.0); MEAN CELL VOLUME 85.2 FL (83-96); MEAN CORPUSCULAR HEMOGLOBIN 27.2 PG (28-34); MEAN CORPUSCULAR HGB CONC 31.9 g/dL (30-36); MEAN PLATELET VOLUME 12.4 FL (6.5-11.5); MONOCYTE# 0.2 X10e3 (0-1.0); MONOCYTE% 3.1 % (3.0-12.0); NEUTROPHIL# 5.7 X10e3 (1.5-7.1); NEUTROPHIL% 82.6 % (40-75); RED BLOOD COUNT 5.56 X10e (3.90-5.60); WHITE BLOOD COUNT 6.9 X10e3 (4.0-10.5)
[2016-12-09 08:13] LABS: PLATELET COUNT 99 X10e3 (140-420)
[2016-12-09 08:14] LABS: DIFF IND YES
[2016-12-09 08:20] LABS: PLATELET ESTIMATE DECREASED (NORMAL)
[2016-12-09 08:22] LABS: TEAR DROP CELLS PRESENT
[2016-12-09 08:32] LABS: BUN/CREATININE RATIO 20.83; CREATININE SERUM 2.4 mg/dL (0.6-1.4); GLOM FILT RATE Estimated 29.1 mL/min (>60); MAGNESIUM 1.9 mg/dL (1.6-3.0); POTASSIUM 5.4 mmol/L (3.5-5.1)
[2016-12-09 14:09] LABS: AMPHETAMINE NEG (NEG); BARBITURATES NEG (NEG); BENZODIAZEPINES POS (NEG); COCAINE POS (NEG); MARIJUANA NEG (NEG); OPIATES NEG (NEG); TRICYCLIC ANTIDEPRESSANTS POS (NEG); U METHADONE NEG (NEG)
[2016-12-09 16:54] LABS: CREATININE SERUM 2.5 mg/dL (0.6-1.4); GLOM FILT RATE Estimated 27.7 mL/min (>60); POTASSIUM 4.6 mmol/L (3.5-5.1)
[2016-12-09 16:55] LABS: CALCIUM SERUM 6.8 mg/dL (8.4-10.2)
[2016-12-10 06:45] LABS: ALBUMIN SERUM 3.2 g/dL (3.5-5.0); BILIRUBIN,TOTAL 0.9 mg/dL (0.2-2.0); BUN/CREATININE RATIO 18.57; CALCIUM SERUM 8.6 mg/dL (8.4-10.2); CREATININE SERUM 3.5 mg/dL (0.6-1.4); GLOM FILT RATE Estimated 18.4 mL/min (>60); PHOSPHOROUS 6.1 mg/dL (2.5-4.6); PROTEIN TOTAL SERUM 6.5 g/dL (6.0-8.3)
[2016-12-10 06:48] LABS: POTASSIUM 6.4 mmol/L (3.5-5.1)
[2016-12-10 07:38] LABS: ARTERIAL BLD GAS O2 SATURATION 97.3 % (90.0-100.0); ARTERIAL BLOOD GAS ALLEN TEST NORMAL; ARTERIAL BLOOD GAS ART SITE LEFT RADIAL; ARTERIAL BLOOD GAS CARBOXY HB 0.9 %sat (0.0-9.0); ARTERIAL BLOOD GAS DELIVERY NASAL CANNULA; ARTERIAL BLOOD GAS HCO3 20.4 mmol/L; ARTERIAL BLOOD GAS MET HB 0.4 %sat (0.0-2.0); ARTERIAL BLOOD GAS PCO2 36.1 mmHg (35.0-45.0); ARTERIAL BLOOD GAS PO2 95.6 mmHg (80.0-100); ARTERIAL DRAW? YES
[2016-12-10 11:41] LABS: BUN/CREATININE RATIO 21.93; CALCIUM SERUM 8.1 mg/dL (8.4-10.2); CREATININE SERUM 3.1 mg/dL (0.6-1.4); GLOM FILT RATE Estimated 21.3 mL/min (>60); POTASSIUM 4.2 mmol/L (3.5-5.1)
[2016-12-11 05:19] LABS: HEMATOCRIT 40.7 % (38.0-50.0); LYMPHOCYTE# 0.4 X10e3 (1.0-3.5); LYMPHOCYTE% 2.6 % (17.0-45.0); MEAN CELL VOLUME 83.9 FL (83-96); MEAN CORPUSCULAR HEMOGLOBIN 26.6 PG (28-34); MEAN CORPUSCULAR HGB CONC 31.7 g/dL (30-36); MEAN PLATELET VOLUME 14.6 FL (6.5-11.5); MONOCYTE# 0.6 X10e3 (0-1.0); MONOCYTE% 3.7 % (3.0-12.0); NEUTROPHIL% 93.7 % (40-75); PLATELET COUNT 84 X10e3 (140-420); RED BLOOD COUNT 4.85 X10e (3.90-5.60); RED CELL DISTRIBUTION WIDTH 15.1 % (11.0-15.5)
[2016-12-11 06:14] LABS: DIFF IND YES; HEMOGLOBIN 12.9 gm/dL (13.0-16.0)
[2016-12-11 07:10] LABS: ANISOCYTOSIS SL; PLATELET ESTIMATE DECREASED (NORMAL)
[2016-12-11 07:11] LABS: OVALOCYTES PRESENT; SCHISTOCYTES PRESENT
[2016-12-11 08:57] LABS: ALBUMIN SERUM 2.6 g/dL (3.5-5.0); BILIRUBIN,TOTAL 1.2 mg/dL (0.2-2.0); BUN/CREATININE RATIO 23.63; CALCIUM SERUM 7.4 mg/dL (8.4-10.2); CREATININE SERUM 2.2 mg/dL (0.6-1.4); GLOM FILT RATE Estimated 32.3 mL/min (>60); MAGNESIUM 1.5 mg/dL (1.6-3.0); PHOSPHOROUS 2.9 mg/dL (2.5-4.6); PROTEIN TOTAL SERUM 5.6 g/dL (6.0-8.3)
[2016-12-11 14:36] LABS: ARTERIAL BLD GAS O2 SATURATION 71.5 % (90.0-100.0); ARTERIAL BLOOD GAS CARBOXY HB 1.1 %sat (0.0-9.0); ARTERIAL BLOOD GAS HCO3 32.9 mmol/L; ARTERIAL BLOOD GAS MET HB 0.6 %sat (0.0-2.0); ARTERIAL BLOOD GAS pH 7.403 (7.350-7.450)
[2016-12-11 14:38] LABS: ARTERIAL BLOOD GAS PCO2 52.8 mmHg (35.0-45.0); ARTERIAL BLOOD GAS PO2 40.8 mmHg (80.0-100)
[2016-12-11 14:40] LABS: ARTERIAL BLOOD GAS DELIVERY NASAL CANNULA
[2016-12-11 14:44] LABS: ARTERIAL DRAW? NO
[2016-12-11 14:48] LABS: ARTERIAL BLOOD GAS ART SITE RIGHT BRACHIAL
[2016-12-11 15:32] LABS: BUN/CREATININE RATIO 24.73; CALCIUM SERUM 7.8 mg/dL (8.4-10.2); CREATININE SERUM 1.9 mg/dL (0.6-1.4); GLOM FILT RATE Estimated 38.6 mL/min (>60); MAGNESIUM 2.2 mg/dL (1.6-3.0); POTASSIUM 3.9 mmol/L (3.5-5.1)
[2016-12-12 04:15] LABS: ARTERIAL BLD GAS O2 SATURATION 91.2 % (90.0-100.0); ARTERIAL BLOOD GAS ALLEN TEST NORMAL; ARTERIAL BLOOD GAS ART SITE RIGHT RADIAL; ARTERIAL BLOOD GAS DELIVERY NASAL CANNULA; ARTERIAL BLOOD GAS PCO2 50.9 mmHg (35.0-45.0); ARTERIAL BLOOD GAS pH 7.418 (7.350-7.450); ARTERIAL DRAW? YES
[2016-12-12 04:16] LABS: ARTERIAL BLOOD GAS CARBOXY HB 1.1 %sat (0.0-9.0); ARTERIAL BLOOD GAS HCO3 32.9 mmol/L; ARTERIAL BLOOD GAS MET HB 0.6 %sat (0.0-2.0)
[2016-12-12 06:16] LABS: HEMATOCRIT 42.5 % (38.0-50.0); HEMOGLOBIN 13.4 gm/dL (13.0-16.0); LYMPHOCYTE# 0.5 X10e3 (1.0-3.5); LYMPHOCYTE% 3.4 % (17.0-45.0); MEAN CELL VOLUME 84.1 FL (83-96); MEAN CORPUSCULAR HEMOGLOBIN 26.6 PG (28-34); MEAN CORPUSCULAR HGB CONC 31.7 g/dL (30-36); MEAN PLATELET VOLUME 13.1 FL (6.5-11.5); MONOCYTE# 0.6 X10e3 (0-1.0); MONOCYTE% 4.1 % (3.0-12.0); NEUTROPHIL# 14.3 X10e3 (1.5-7.1); NEUTROPHIL% 92.5 % (40-75); PLATELET COUNT 90 X10e3 (140-420); RED BLOOD COUNT 5.05 X10e (3.90-5.60); RED CELL DISTRIBUTION WIDTH 14.9 % (11.0-15.5); WHITE BLOOD COUNT 15.4 X10e3 (4.0-10.5)
[2016-12-12 06:18] LABS: DIFF IND NO
[2016-12-12 07:18] LABS: ALBUMIN SERUM 2.7 g/dL (3.5-5.0); BILIRUBIN,TOTAL 1.1 mg/dL (0.2-2.0); CALCIUM SERUM 8.4 mg/dL (8.4-10.2); CREATININE SERUM 1.4 mg/dL (0.6-1.4); GLOM FILT RATE Estimated 55.8 mL/min (>60); MAGNESIUM 2.1 mg/dL (1.6-3.0); PHOSPHOROUS 2.9 mg/dL (2.5-4.6); POTASSIUM 4.2 mmol/L (3.5-5.1); PROTEIN TOTAL SERUM 5.4 g/dL (6.0-8.3)
[2016-12-13 04:53] LABS: BASOPHIL% 0.1 % (0-2.5); DIFF IND NO; EOSINOPHIL% 0.1 % (0.0-7.0); HEMATOCRIT 42.3 % (38.0-50.0); HEMOGLOBIN 13.4 gm/dL (13.0-16.0); LYMPHOCYTE# 0.7 X10e3 (1.0-3.5); LYMPHOCYTE% 5.3 % (17.0-45.0); MEAN CELL VOLUME 84.7 FL (83-96); MEAN CORPUSCULAR HEMOGLOBIN 26.8 PG (28-34); MEAN CORPUSCULAR HGB CONC 31.6 g/dL (30-36); MONOCYTE# 0.8 X10e3 (0-1.0); MONOCYTE% 6.2 % (3.0-12.0); NEUTROPHIL# 10.9 X10e3 (1.5-7.1); NEUTROPHIL% 88.3 % (40-75); PLATELET COUNT 84 X10e3 (140-420); RED BLOOD COUNT 4.99 X10e (3.90-5.60); RED CELL DISTRIBUTION WIDTH 15.1 % (11.0-15.5); WHITE BLOOD COUNT 12.4 X10e3 (4.0-10.5)
[2016-12-13 05:51] LABS: ALBUMIN SERUM 2.8 g/dL (3.5-5.0); BUN/CREATININE RATIO 28.75; CALCIUM SERUM 8.5 mg/dL (8.4-10.2); CREATININE SERUM 1.6 mg/dL (0.6-1.4); GLOM FILT RATE Estimated 47.5 mL/min (>60); MAGNESIUM 1.9 mg/dL (1.6-3.0); PHOSPHOROUS 3.2 mg/dL (2.5-4.6); POTASSIUM 4.7 mmol/L (3.5-5.1); PROTEIN TOTAL SERUM 5.8 g/dL (6.0-8.3)
[2016-12-14 06:07] LABS: BASOPHIL% 0.1 % (0-2.5); EOSINOPHIL# 0.6 X10e3 (0-0.7); EOSINOPHIL% 5.7 % (0.0-7.0); HEMATOCRIT 43.1 % (38.0-50.0); HEMOGLOBIN 13.9 gm/dL (13.0-16.0); LYMPHOCYTE# 1.8 X10e3 (1.0-3.5); LYMPHOCYTE% 16.2 % (17.0-45.0); MEAN CELL VOLUME 84.4 FL (83-96); MEAN CORPUSCULAR HEMOGLOBIN 27.2 PG (28-34); MEAN CORPUSCULAR HGB CONC 32.2 g/dL (30-36); MONOCYTE% 8.9 % (3.0-12.0); NEUTROPHIL# 7.5 X10e3 (1.5-7.1); NEUTROPHIL% 69.1 % (40-75); RED CELL DISTRIBUTION WIDTH 14.7 % (11.0-15.5); WHITE BLOOD COUNT 10.9 X10e3 (4.0-10.5)
[2016-12-14 06:47] LABS: PLATELET COUNT 92 X10e3 (140-420)
[2016-12-14 06:49] LABS: DIFF IND NO
[2016-12-14 06:57] LABS: ALBUMIN SERUM 3.2 g/dL (3.5-5.0); BILIRUBIN,TOTAL 1.4 mg/dL (0.2-2.0); BUN/CREATININE RATIO 31.17; CALCIUM SERUM 8.8 mg/dL (8.4-10.2); CREATININE SERUM 1.7 mg/dL (0.6-1.4); GLOM FILT RATE Estimated 44.1 mL/min (>60); POTASSIUM 4.2 mmol/L (3.5-5.1); PROTEIN TOTAL SERUM 6.3 g/dL (6.0-8.3)
[2016-12-14] MEDS ORDERED: COMBIVENT U/D3 M2 INH (16:15)
[2016-12-14] MEDS ORDERED: AMIODARONE HCL200 MG PO (16:16)
[2016-12-14] MEDS ORDERED: MIRALAX17 G2 PO (16:53)
[2016-12-14] MEDS ORDERED: PROAMATINE10 MG PO (16:55)
[2016-12-14] MEDS ORDERED: OMNICEF300 M1 PO (17:01)
== END 2016-12-14 18:56 | disposition home or self-care (01) | DRG 871 ==
LOC: CFTX 16:45 → CED 16:45 → CFTX 17:11 → CICCU2 19:35 → CEDOF 19:35 → CICCU2 20:02 → CEDOF 20:02 → CED 20:02 → CICCU2 21:45 → CEDOF 21:45 → CICCU2 21:45 → C3A PCU 12-13 17:42
PROVIDERS: Family Medicine; Internal Medicine; Internal Medicine Medical Oncology; Internal Medicine Nephrology; Nurse Practitioner; Physician Assistant Medical; Student in an Organized Health Care Education/Training Program
PROC: 05HM33Z Insertion of Infusion Device into Right Internal Jugular Vein, Percutaneous Approach (ICD-10-PCS; principal; 2016-12-09)
PROC: B543ZZA Ultrasonography of Right Jugular Veins, Guidance (ICD-10-PCS; 2016-12-09)
PROC: B24BYZZ Ultrasonography of Heart with Aorta using Other Contrast (ICD-10-PCS; 2016-12-09)
DX: A41.9 Sepsis, unspecified organism (principal); R65.21 Severe sepsis with septic shock; J96.01 Acute respiratory failure with hypoxia; I50.43 Acute on chronic combined systolic (congestive) and diastolic (congestive) heart failure; E87.2 Acidosis; D69.6 Thrombocytopenia, unspecified; N17.9 Acute kidney failure, unspecified; J44.0 Chronic obstructive pulmonary disease with (acute) lower respiratory infection; N18.3 Chronic kidney disease, stage 3 (moderate); I48.92 Unspecified atrial flutter; E46 Unspecified protein-calorie malnutrition; J44.1 Chronic obstructive pulmonary disease with (acute) exacerbation; I13.0 Hypertensive heart and chronic kidney disease with heart failure and stage 1 through stage 4 chronic kidney disease, or unspecified chronic kidney disease; I48.0 Paroxysmal atrial fibrillation; I25.5 Ischemic cardiomyopathy; I44.7 Left bundle-branch block, unspecified; E11.22 Type 2 diabetes mellitus with diabetic chronic kidney disease; E11.65 Type 2 diabetes mellitus with hyperglycemia; Z86.711 Personal history of pulmonary embolism; Z79.01 Long term (current) use of anticoagulants; E78.5 Hyperlipidemia, unspecified; F32.9 Major depressive disorder, single episode, unspecified; Z95.810 Presence of automatic (implantable) cardiac defibrillator; Z79.4 Long term (current) use of insulin; Z91.14 Patient's other noncompliance with medication regimen; Z86.73 Personal history of transient ischemic attack (TIA), and cerebral infarction without residual deficits; F17.210 Nicotine dependence, cigarettes, uncomplicated; J20.9 Acute bronchitis, unspecified; E87.5 Hyperkalemia
CPT/HCPCS: 36600; 71010; 71250; 76770; 80048; 80053; 80061; 80076; 80307; 81003; 82308; 82550; 82553; 82803; 82947; 83036; 83605; 83735; 83880; 84100; 84132; 84443; 84484; 85025; 85610; 85730; 87040; 89190; 93005; 93306; 94640; 94760; 94761; 96365; 96366; 96375; 96376; 99291; C9113; G0480; J0282; J0610; J0696; J1250; J1650; J1815; J1940; J1956; J2250; J2543; J2920; J2930; J3475